=== PATIENT | male | born 2000 | race Hispanic/Latino ===

== ENCOUNTER 2021-01-12 18:30 | Emergency (ER) | payer MEDICAID ==
[~2021-01-12] VITALS: Ht 175.3 cm; Wt 129.9 kg
[2021-01-12] MEDS ORDERED: ABIL1TAB11 PO (18:39)
[2021-01-12] MEDS ORDERED: BUPR-332 PO (18:39)
--- NOTE | 2021-01-12 20:32 | REPVR ---
PROCEDURE INFORMATION: Exam: CT Head Without Contrast Exam date and time: 01/12/2021 7:57 PM Age: 20 years old Clinical indication: Injury or trauma; Fall; Blunt trauma (contusions or hematomas); Additional info: Fall with head injury TECHNIQUE: Imaging protocol: Computed tomography of the head without contrast. Radiation optimization: All CT scans at this facility use at least one of these dose optimization techniques: automated exposure control; mA and/or kV adjustment per patient size (includes targeted exams where dose is matched to clinical indication); or iterative reconstruction. COMPARISON: No relevant prior studies available. FINDINGS: Brain: Normal. No hemorrhage. Unremarkable white matter. No mass effect. Cerebral ventricles: No ventriculomegaly. Bones/joints: Unremarkable. No acute fracture. Paranasal sinuses: Visualized sinuses are unremarkable. No fluid levels. Mastoid air cells: Visualized mastoid air cells are well aerated. Soft tissues: Right lateral scalp soft tissue injury greater superiorly. IMPRESSION: No acute intracranial abnormality. Electronically signed by: Rommel Gillis On 01/12/2021 20:33:24 PM
[2021-01-12] MEDS ORDERED: LIDOCAINE 2% W/EPINEPHRINE 20ML VIAL **PRES FREE INJ ONE (20:35)
[2021-01-12 21:05] VITALS: BP 137/73
== END 2021-01-12 21:12 | disposition home or self-care (01) ==
LOC: M ED 18:30
DX: S01.01XA Laceration without foreign body of scalp, initial encounter (principal); T14.8XXA Other injury of unspecified body region, initial encounter; V00.131A Fall from skateboard, initial encounter; Y92.410 Unspecified street and highway as the place of occurrence of the external cause

== ENCOUNTER 2023-01-22 18:54 | Inpatient (IN) | payer MEDICAID ==
[~2023-01-22] VITALS: Ht 175.3 cm; Wt 104.0 kg
[~2023-01-22 18:54] MED LIST: ABIL1TAB11 PO; BUPR-332 PO
[2023-01-22 20:14] LABS: HEMATOCRIT 49.1 % (42.0-52.0); HEMOGLOBIN 16.5 g/dl (13.5-17.5); MEAN CORPUSCULAR HEMOGLOBIN 30.1 pg (27.0-33.0); MEAN CORPUSCULAR HGB CONC 33.6 g/dl (32.0-36.5); MEAN CORPUSCULAR VOLUME 89.4 fl (80.0-96.0); PLATELET COUNT, AUTOMATED 244 10^3/uL (150-450); RED BLOOD COUNT 5.49 10^6/uL (4.30-6.10); WHITE BLOOD COUNT 8.6 10^3/uL (4.0-10.0)
[2023-01-22 20:20] LABS: ETHYL ALCOHOL (ETHANOL) < 0.003 % (0.000-0.010)
[2023-01-22 20:22] LABS: ACETAMINOPHEN LEVEL < 2.0 UG/ML (10.0-20.0); ALBUMIN 4.5 G/DL (3.2-5.2); ALKALINE PHOSPHATASE 79 U/L (46-116); ALT/SGPT 11 U/L (7.0-40); AST/SGOT 12 U/L (<34); BILIRUBIN,DIRECT 0.2 MG/DL (<0.4); BILIRUBIN,TOTAL 0.6 MG/DL (0.3-1.2); BLOOD UREA NITROGEN 14 MG/DL (9-23); CALCIUM LEVEL 9.3 MG/DL (8.5-10.1); CARBON DIOXIDE LEVEL 28 MMOL/L (20-31); CHLORIDE LEVEL 105 MMOL/L (98-107); GLOMERULAR FILTRATION RATE > 60.0 (>60); GLUCOSE, FASTING 87 MG/DL (60-100); POTASSIUM SERUM 4.1 MMOL/L (3.5-5.1); SALICYLATE LEVEL < 3.0 MG/DL (<30); SODIUM LEVEL 139 MMOL/L (136-145); TOTAL PROTEIN 7.6 G/DL (5.7-8.2)
[2023-01-22 20:24] LABS: THYROID STIMULATING HORMONE 0.662 uIU/ML (0.55-4.78)
[2023-01-22 20:42] LABS: BARBITURATES URINE NEGATIVE (NEGATIVE); COCAINE METABOLITE URINE NEGATIVE (NEGATIVE)
[2023-01-22 20:43] LABS: AMPHETAMINES LEVEL URINE NEGATIVE (NEGATIVE); BENZODIAZEPINES URINE NEGATIVE (NEGATIVE); METHADONE URINE NEGATIVE (NEGATIVE); OPIATES URINE NEGATIVE (NEGATIVE); PHENCYCLIDINE URINE NEGATIVE (NEGATIVE)
[2023-01-22 20:54] LABS: CANNABINOIDS URINE POSITIVE (NEGATIVE)
[2023-01-22] MEDS ORDERED: HOME MED LIST COMPLETE! XX SCH (23:05)
[2023-01-22] MEDS ORDERED: IBUPROFEN 400MG TAB PO PRN (23:15)
[2023-01-22] MEDS ORDERED: MAALOX 30 ML SUSP *UDC PO PRN (23:15)
[2023-01-22] MEDS ORDERED: traZODone 50 MG TAB PO PRN (23:15)
[2023-01-22] MEDS ORDERED: MOM 30ML SUSPENSION UDC PO PRN (23:15)
[2023-01-22] MEDS ORDERED: ACETAMINOPHEN TAB 650MG DOSE (2X325MG) PO PRN (23:15)
[2023-01-23] MEDS ORDERED: LORazepam 2 MG/ML 1ML VIAL IM STA (01:29)
[2023-01-23] MEDS ORDERED: HALOPERIDOL 5MG/ML 1ML VIAL IM ONE (01:30)
[2023-01-23] MEDS ORDERED: diphenhydrAMINE 50MG/ML VIAL IM ONE (01:30)
[2023-01-23] MEDS ORDERED: LORazepam 2 MG/ML 1ML VIAL As Ordered ONE (01:32)
[2023-01-23 16:32] VITALS: BP 150/80
[2023-01-23] MEDS: OLANZapine ORAL DISINTEGRATING TAB 5MG PO PRN (18:48)
[2023-01-24 06:21] VITALS: BP 126/83
[2023-01-24 16:19] VITALS: BP 148/65
[2023-01-24] MEDS: OLANZapine ORAL DISINTEGRATING TAB 5MG PO PRN (21:03)
[2023-01-25 06:11] VITALS: BP 131/83
[2023-01-25 18:24] VITALS: BP 140/78
[2023-01-25] MEDS: OLANZapine ORAL DISINTEGRATING TAB 5MG PO PRN (21:21)
[2023-01-26 06:44] VITALS: BP 137/71
[2023-01-26] MEDS ORDERED: ABIL1TAB11 PO ×2 (09:51→11:01)
[2023-01-26] MEDS ORDERED: TRAZ-252 PO (09:51)
[2023-01-26] MEDS ORDERED: ABIL400I IM (09:51)
[2023-01-26] MEDS ORDERED: ARIPiprazole MONOHYDRATE 400 MG INJ (ABILIFY)(FREE PSY INPT ONLY) IM ONE (11:00)
== END 2023-01-26 11:34 | disposition home or self-care (01) | DRG 754 ==
LOC: M ED 18:54 → UNDOADMIN 21:54 → M ED INP 21:54 → M PSY 01-23 06:17
PROVIDERS: ADMIT Student in an Organized Health Care Education/Training Program; ATTEND Psychiatry & Neurology Psychiatry
DX: F32.A Depression, unspecified (principal); R45.850 Homicidal ideations; R45.851 Suicidal ideations; M25.511 Pain in right shoulder; M25.512 Pain in left shoulder; Z63.0 Problems in relationship with spouse or partner; Z63.4 Disappearance and death of family member